=== PATIENT | male | born 1975 | race Caucasian/White ===

== ENCOUNTER 2018-07-01 14:24 | Outpatient (CLI) | payer BC ==
[2018-07-01 15:59] LABS: #Basophils 0.1 thou/uL (0.0-0.2); #Eosinphils 0.3 thou/uL (0.0-0.7); #Lymphocytes 1.8 thou/uL (1.20-3.40); #Monocytes 0.6 thou/uL (0.11-0.59); #Neutrophils 3.5 thou/uL (1.40-6.50); %Basophils 1.5 % (0.0-1.0); %Eosinophils 4.8 % (0.0-10.0); %Lymphocytes 28.6 % (21.0-51.0); %Monocytes 9.9 % (0.0-10.0); %Neutrophils 55.2 % (42.0-75.0); Hemoglobin 14.7 g/dL (14.0-18.0); Mean Corpuscular HGB CONC 34.3 g/dL (32.0-36.0); Mean Corpuscular Hemoglobin 30.8 pg (27.0-31.0); Mean Corpuscular Volume 89.8 fL (78.0-98.0); Mean Platelet Volume 6.7 fL (7.4-10.4); Platelet Count 238 thou/uL (130-400); RBC Distribution Width 11.2 % (11.5-14.5); Red Blood Cell (RBC) Count 4.78 mill/uL (4.70-6.10); White Blood Cell (WBC) Count 6.3 thou/uL (4.8-10.8)
[2018-07-01 16:14] LABS: Anion Gap 13 mmol/L (10-20); BUN (Urea Nitrogen) 15 mg/dL (8.9-20.6); Calc. Creatinine Clearance 0 mL/min (70-130); Calcium 9.8 mg/dL (7.8-10.44); Carbon Dioxide 24 mmol/L (22-29); Chloride 105 mmol/L (98-107); Estimated GFR-MDRD Greater than 90; Glucose 99 mg/dL (70-105); Sodium 138 mmol/L (136-145)
== END 2018-07-01 14:25 | disposition home or self-care (01) ==
LOC: LABBT 14:24
PROVIDERS: ATTEND Surgery
DX: Z01.812 Encounter for preprocedural laboratory examination (principal); K40.90 Unilateral inguinal hernia, without obstruction or gangrene, not specified as recurrent
CPT/HCPCS: 80048; 85025

== ENCOUNTER 2018-07-07 07:27 | Day surgery (SDC) | payer BC ==
[2018-07-01 14:53] VITALS: BMI 25.7
[2018-07-07] MEDS ORDERED: CEFAZOLIN/Water 2 GM/20 ML SYRINGE ONE (08:18)
[2018-07-07] MEDS ORDERED: Bupivacaine/Epinephrine 0.25% 30 ML VIAL ONE (11:26)
[2018-07-07] MEDS ORDERED: Fentanyl 100 MCG/2 ML VIAL ONE ×2 (11:38→13:49)
[2018-07-07] MEDS ORDERED: SUGAMMADEX SODIUM 500 MG/5 ML VIAL ONE ×2 (13:13→13:14)
[2018-07-07] MEDS ORDERED: Glycopyrrolate 0.2 MG/ML 5 ML SYRINGE ONE (14:30)
[2018-07-07] MEDS ORDERED: Lidocaine 1% PF 5 ML VIAL ONE (14:30)
[2018-07-07] MEDS ORDERED: Ondansetron HCl/PF 4 MG/2 ML Vial ONE (14:30)
[2018-07-07] MEDS ORDERED: Ketorolac Tromethamine 30 MG/ML VIAL ONE (14:30)
[2018-07-07] MEDS ORDERED: PROPOFOL 200 MG/20 ML VIAL ONE (14:30)
[2018-07-07] MEDS ORDERED: HYDROcodone/Acetaminophen 5/325 mg Tablet ONE (15:05)
--- NOTE | 2018-07-08 13:55 | OP ---
DATE OF PROCEDURE: 07/07/2018 PREOPERATIVE DIAGNOSIS: Left inguinal hernia. POSTOPERATIVE DIAGNOSIS: Left inguinal hernia. PROCEDURE: Da Tim laparoscopic left inguinal hernia repair with mesh, 3DMax large . SURGEON: Nazario Ulloa MD ANESTHESIA: General. ESTIMATED BLOOD LOSS: Minimal. COMPLICATIONS: None. SPECIMEN: None. FINDINGS: Left inguinal hernia. TECHNIQUE: The patient was taken to the operating room and placed supine in table. After general an esthetic was obtained, a Negron was placed. The abdomen was shaved, prepped, and draped in a sterile fashion. Curved incision made above the umbilicus. Cautery was used to dissect down to and score th e fascia. Abdominal cavity entered bluntly using a Brenda clamp. An 11-mm balloon applied medical tr ocar was placed. The balloon was inflated , high-flow pneumoperitoneum was obtained. Left and right abdominal 8 mm robot trocars were placed. All ports were docked to the robot. Surgeon goes to the console. The peritoneum in the left groin is opened, exposing the preperitoneal space. There is no right inguinal hernia. Preperitoneal space was bluntly dissected to pubic tubercle medially, anterio r superiorly iliac crest laterally. Indirect hernia was dissected away from the other cord structure s high up onto the peritoneum. There was no direct defect. There was no femoral defect. A 3DMax la rge mesh brought into the abdomen and end-labeled medial aspect is placed over pubic tubercle mediall y. The mesh laid out to cover the indirect, direct, and femoral areas. The mesh is sewn with 2-0 Vi cryl to the pubic tubercle medially and the posterior fascia laterally. The peritoneum was reapproxi mated using 3-0 Stratafix. All port sites were infiltrated using local anesthetic. All ports were r emoved under camera visualization. Pneumoperitoneum was let down. PDS used to close the fascial def ect above the umbilicus. All incisions were irrigated and closed using 4-0 Monocryl and Dermabond. The patient is en route to recovery room in stable condition. All instrument counts, needle counts, lap counts are correct.
== END 2018-07-07 17:00 | disposition home or self-care (01) ==
LOC: SDC 07:27
PROVIDERS: ATTEND Surgery
PROC: 0YU64JZ Supplement Left Inguinal Region with Synthetic Substitute, Percutaneous Endoscopic Approach (ICD-10-PCS; principal; 2018-07-07)
DX: K40.90 Unilateral inguinal hernia, without obstruction or gangrene, not specified as recurrent (principal); J45.909 Unspecified asthma, uncomplicated; K59.00 Constipation, unspecified; Z79.899 Other long term (current) drug therapy; Z79.51 Long term (current) use of inhaled steroids; Z88.1 Allergy status to other antibiotic agents
CPT/HCPCS: 96374; C1781; J0131; J1885; J2001; J2405; J2704; J3010

== ENCOUNTER 2022-04-03 09:37 | Outpatient (CLI) | payer BC | END 2022-04-03 09:38 | disposition home or self-care (01) | LOC: BICULT 09:37 | PROVIDERS: ATTEND Physician Assistant Medical | DX: R10.13 Epigastric pain (principal); R19.7 Diarrhea, unspecified; K76.0 Fatty (change of) liver, not elsewhere classified | CPT/HCPCS: 76705 ==